=== PATIENT | female | born 1990 | race Caucasian/White ===

== ENCOUNTER 2017-10-09 16:40 | Emergency (ER) | payer OTHER ==
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
== END 2017-10-09 18:25 | disposition home or self-care (01) ==
LOC: MW.ED 16:40
DX: S16.1XXA Strain of muscle, fascia and tendon at neck level, initial encounter (principal); Z79.899 Other long term (current) drug therapy; Z88.5 Allergy status to narcotic agent; V49.9XXA Car occupant (driver) (passenger) injured in unspecified traffic accident, initial encounter
CPT/HCPCS: 72125; 72125-26; 81001; 99283; 99284-25